=== PATIENT | male | born 1995 | race Caucasian/White ===

== ENCOUNTER 2019-02-18 18:00 | Emergency (ER) | payer OTHER ==
[~2019-02-18] VITALS: Ht 175.3 cm; Wt 79.4 kg
== END 2019-02-18 21:19 | disposition home or self-care (01) ==
LOC: ER 18:00
DX: T26.12XA Burn of cornea and conjunctival sac, left eye, initial encounter (principal); H16.212 Exposure keratoconjunctivitis, left eye; Y27.8XXA Contact with other hot objects, undetermined intent, initial encounter; Y93.H3 Activity, building and construction; Y92.69 Other specified industrial and construction area as the place of occurrence of the external cause; Y99.8 Other external cause status

== ENCOUNTER 2020-01-03 17:25 | Emergency (ER) | payer OTHER ==
[~2020-01-03] VITALS: Ht 180.3 cm; Wt 77.1 kg
== END 2020-01-03 18:08 | disposition home or self-care (01) ==
LOC: ER 17:25
DX: L02.212 Cutaneous abscess of back [any part, except buttock and flank] (principal)

== ENCOUNTER 2020-09-09 02:13 | Emergency (ER) | payer OTHER ==
[~2020-09-09] VITALS: Ht 177.8 cm; Wt 81.6 kg
[2020-09-09] MEDS ORDERED: CIPRO250 MG (02:26)
== END 2020-09-09 13:01 | disposition home or self-care (01) ==
LOC: ER 02:13
DX: L05.01 Pilonidal cyst with abscess (principal); B96.89 Other specified bacterial agents as the cause of diseases classified elsewhere; Z03.818 Encounter for observation for suspected exposure to other biological agents ruled out

== ENCOUNTER 2021-01-22 19:51 | Emergency (ER) | payer OTHER ==
[~2021-01-22] VITALS: Ht 177.8 cm; Wt 77.1 kg
[~2021-01-22 19:51] MED LIST: CIPRO250 MG
== END 2021-01-22 21:30 | disposition home or self-care (01) ==
LOC: ER 19:51
DX: L05.01 Pilonidal cyst with abscess (principal)